=== PATIENT | male | born 1945 | race Caucasian/White ===

== ENCOUNTER 2017-11-11 20:02 | Observation (INO) | payer MEDICARE ==
[~2017-11-11] VITALS: Ht 185.4 cm; Wt 103.0 kg
[~2017-11-11 20:02] MED LIST: ASPI-612 PO; CALC-499 PO; CITA20TA11 PO; CLOP75TA35 PO; COR3.125T PO; FENO135C PO; FOLI-62 PO; GABA-338 PO; GLIP5TAB26 PO; HYDR-3964 PO; ISOS30TA6 PO; LOSA25TA96 PO; NICO-631 TD; OMEG10007 PO; PRAZ1CAP5 PO; SIMV20TA5 PO
[2017-11-11] MEDS ORDERED: aspirin 81mg tab.chew PO ONE ×2 (20:05→20:20)
[2017-11-11] MEDS ORDERED: acetaminophen 325mg tablet PO ONE (20:20)
[2017-11-11 20:40] LABS: BASOPHILS % (AUTO) 0.3 % (0-1); EOSINOPHILS # (AUTO) 0.3 X10'3 (0-0.9); EOSINOPHILS % (AUTO) 3.7 % (0-6); HEMATOCRIT 34.3 % (42.0-52.0); HEMOGLOBIN 11.8 g/dl (14.0-17.9); LYMPHOCYTES # (AUTO) 2.8 X10'3 (1.1-4.8); LYMPHOCYTES % (AUTO) 37.4 % (21-51); MEAN CORPUSCULAR HEMOGLOBIN 29.9 PG (27.0-31.0); MEAN CORPUSCULAR HGB CONC 34.3 % (33.0-36.5); MEAN CORPUSCULAR VOLUME 87.3 FL (78-98); MEAN PLATELET VOLUME 8.4 FL (7.4-10.4); MONOCYTES # (AUTO) 0.7 X10'3 (0-0.9); MONOCYTES % (AUTO) 8.9 % (2-12); NEUTROPHILS # (AUTO) 3.7 X10'3 (1.8-7.7); NEUTROPHILS % (AUTO) 49.7 % (42-75); PLATELET COUNT 255 X10'3 (140-440); RED BLOOD COUNT 3.93 X10'6 (4.70-6.10); RED CELL DISTRIBUTION WIDTH 14.3 % (11.5-14.5); WHITE BLOOD COUNT 7.5 X10'3 (4.5-11.0)
[2017-11-11 21:04] LABS: ALANINE AMINOTRANSFERASE 25 U/L (12-78); ALBUMIN 3.6 G/DL (3.4-5.0); ALKALINE PHOSPHATASE 85 IU/L (46-116); ANION GAP 13 (8-16); BILIRUBIN,TOTAL 0.2 MG/DL (0.1-1.0); BLOOD UREA NITROGEN 19 MG/DL (7-18); BUN/CREATININE RATIO 12.3 (5.4-32.0); CALCIUM 8.5 MG/DL (8.5-10.1); CHLORIDE 106 MMOL/L (99-107); CREATININE 1.55 MG/DL (0.60-1.10); MAGNESIUM 1.9 MG/DL (1.5-2.4); POTASSIUM 3.8 MMOL/L (3.5-5.1); SODIUM 141 MMOL/L (135-145); TOTAL CARBON DIOXIDE 21.7 MMOL/L (24-32); TOTAL PROTEIN 7.3 G/DL (6.4-8.2); eGFR 44 ML/MIN
[2017-11-11 21:18] LABS: GLUCOSE 254 MG/DL (70-104)
[2017-11-11 21:32] LABS: ASPARTATE AMINO TRANSFERASE 23 U/L (10-37)
[2017-11-11] MEDS ORDERED: ATOR20TA PO (21:36)
[2017-11-11] MEDS ORDERED: OMEP40CA37 PO (21:36)
[2017-11-11] MEDS ORDERED: GEMF600T3 PO (21:36)
[2017-11-11] MEDS ORDERED: glucagon, human recombinant 1mg kit SUBCUT PRN (23:30)
[2017-11-11] MEDS ORDERED: ondansetron/PF 4mg/2ml inj IV PRN (23:30)
[2017-11-11] MEDS ORDERED: nitroGLYCERIN 0.4mg SUBLingual tab SL PRN (23:30)
[2017-11-11] MEDS ORDERED: HYDROmorphone inj. 0.5 MG/0.5 ML DISP.SYRIN IV PRN (23:30)
[2017-11-11] MEDS ORDERED: MESSAGE TO PHARMACY PO ONE (23:30)
[2017-11-11] MEDS ORDERED: dextrose 50%-water 50ml dispensing syringe IV PRN ×2 (23:30)
[2017-11-11] MEDS ORDERED: acetaminophen 325mg tablet PO PRN (23:30)
[2017-11-11] MEDS ORDERED: dextrose ORAL solution 15 GM/59 ML bottle PO PRN ×2 (23:30)
[2017-11-11] MEDS ORDERED: insulin Lispro (HumaLOG) vial - multi-dose SQ SCH (23:30)
[2017-11-11 23:53] LABS: HEMOGLOBIN A1C 7.4 % (4.5-6.2)
[2017-11-12 02:00] VITALS: BP 107/67
[2017-11-12 04:20] LABS: BASOPHILS % (AUTO) 0.4 % (0-1); EOSINOPHILS # (AUTO) 0.2 X10'3 (0-0.9); EOSINOPHILS % (AUTO) 3.1 % (0-6); HEMATOCRIT 31.4 % (42.0-52.0); HEMOGLOBIN 10.7 g/dl (14.0-17.9); LYMPHOCYTES # (AUTO) 2.5 X10'3 (1.1-4.8); LYMPHOCYTES % (AUTO) 39.4 % (21-51); MEAN CORPUSCULAR HEMOGLOBIN 29.5 PG (27.0-31.0); MEAN CORPUSCULAR HGB CONC 34.1 % (33.0-36.5); MEAN CORPUSCULAR VOLUME 86.5 FL (78-98); MEAN PLATELET VOLUME 8.5 FL (7.4-10.4); MONOCYTES # (AUTO) 0.7 X10'3 (0-0.9); MONOCYTES % (AUTO) 10.3 % (2-12); NEUTROPHILS % (AUTO) 46.8 % (42-75); PLATELET COUNT 212 X10'3 (140-440); RED BLOOD COUNT 3.64 X10'6 (4.70-6.10); RED CELL DISTRIBUTION WIDTH 14.5 % (11.5-14.5); WHITE BLOOD COUNT 6.3 X10'3 (4.5-11.0)
[2017-11-12 04:35] LABS: ALBUMIN 3.2 G/DL (3.4-5.0); ANION GAP 10 (8-16); BLOOD UREA NITROGEN 19 MG/DL (7-18); BUN/CREATININE RATIO 13.2 (5.4-32.0); CALCIUM 8.6 MG/DL (8.5-10.1); CHLORIDE 111 MMOL/L (99-107); CHOL/HDL RATIO 4.8 (0.00-4.99); CHOLESTEROL 114 MG/DL (0-200); CREATININE 1.44 MG/DL (0.60-1.10); GLUCOSE 176 MG/DL (70-104); HDL CHOLESTEROL 24 MG/DL (35-60); LDL CHOLESTEROL 65 MG/DL (50-100); POTASSIUM 3.8 MMOL/L (3.5-5.1); SODIUM 145 MMOL/L (135-145); TOTAL CARBON DIOXIDE 23.7 MMOL/L (24-32); TRIGLYCERIDES 188 MG/DL (20-135); eGFR 48 ML/MIN
[2017-11-12 06:30] VITALS: BP 102/48
[2017-11-12] MEDS ORDERED: gabapentin 300mg capsule PO SCH (08:00)
[2017-11-12] MEDS ORDERED: carVEDilol 3.125mg tablet PO SCH (08:00)
[2017-11-12] MEDS ORDERED: losartan 25mg tablet PO SCH (08:00)
[2017-11-12] MEDS ORDERED: multivitamins, therapeutics tablet PO SCH (08:00)
[2017-11-12] MEDS ORDERED: prazosin 1mg capsule PO SCH (08:00)
[2017-11-12] MEDS ORDERED: non-formulary drug (Omeprazole (Prilosec) 1 CAP) PO SCH (08:00)
[2017-11-12] MEDS ORDERED: isosorbide mononitrate 30mg tab.SR.24H PO SCH (08:00)
[2017-11-12] MEDS ORDERED: aspirin 81mg tablet.DR PO SCH (08:00)
[2017-11-12] MEDS ORDERED: citalopram 20mg tablet PO SCH (08:00)
[2017-11-12] MEDS ORDERED: clopidogrel 75mg tablet PO SCH (08:00)
[2017-11-12] MEDS ORDERED: OMEGA-3/DHA/EPA/FISH OIL 1 EACH CAPSULE.DR PO SCH (08:00)
[2017-11-12] MEDS ORDERED: calcium carbonate/vitamin D3 tablet PO SCH (08:30)
[2017-11-12] MEDS ORDERED: NITR0.4T48 SL (09:36)
[2017-11-12] MEDS ORDERED: RANO500T3 PO (09:36)
[2017-11-12] MEDS ORDERED: atorvastatin 20mg tablet PO SCH (21:00)
[2017-11-12] MEDS ORDERED: insulin glargine (Lantus) pen - multi-dose SQ SCH (21:00)
== END 2017-11-12 10:35 | disposition home or self-care (01) ==
LOC: ER 20:03 → PCU 3S 23:44
PROVIDERS: ADMIT Family Medicine; ATTEND Family Medicine
DX: R07.89 Other chest pain (principal); E78.00 Pure hypercholesterolemia, unspecified; E78.5 Hyperlipidemia, unspecified; I13.0 Hypertensive heart and chronic kidney disease with heart failure and stage 1 through stage 4 chronic kidney disease, or unspecified chronic kidney disease; E11.22 Type 2 diabetes mellitus with diabetic chronic kidney disease; N18.3 Chronic kidney disease, stage 3 (moderate); I25.110 Atherosclerotic heart disease of native coronary artery with unstable angina pectoris; I25.2 Old myocardial infarction; E11.42 Type 2 diabetes mellitus with diabetic polyneuropathy; K21.9 Gastro-esophageal reflux disease without esophagitis; J40 Bronchitis, not specified as acute or chronic; R56.9 Unspecified convulsions; J18.9 Pneumonia, unspecified organism; Z72.0 Tobacco use; Z86.73 Personal history of transient ischemic attack (TIA), and cerebral infarction without residual deficits; Z95.5 Presence of coronary angioplasty implant and graft
CPT/HCPCS: 36415; 71045; 80048; 80053; 80061; 82948; 83036; 83735; 83880; 84484; 85025; 93005; 99285; G0378; J1815

== ENCOUNTER 2017-12-26 11:41 | Observation (INO) | payer MEDICARE ==
[~2017-12-26] VITALS: Ht 185.4 cm; Wt 96.7 kg
[2017-12-26 00:15] VITALS: BP 119/47
[~2017-12-26 11:41] MED LIST changes: +ATOR20TA PO; +CITA-278 PO; -CITA20TA11 PO; -FENO135C PO; +GEMF600T3 PO; -HYDR-3964 PO; -NICO-631 TD; +NITR0.4T48 SL; +OMEP40CA37 PO; +RANO500T3 PO; -SIMV20TA5 PO
[2017-12-26 12:06] LABS: BASOPHILS % (AUTO) 0.2 % (0-1); EOSINOPHILS % (AUTO) 0.4 % (0-6); HEMATOCRIT 35.4 % (42.0-52.0); LYMPHOCYTES # (AUTO) 1.6 X10'3 (1.1-4.8); LYMPHOCYTES % (AUTO) 13.3 % (21-51); MEAN CORPUSCULAR VOLUME 88.4 FL (78-98); MEAN PLATELET VOLUME 7.8 FL (7.4-10.4); MONOCYTES # (AUTO) 0.9 X10'3 (0-0.9); MONOCYTES % (AUTO) 7.2 % (2-12); NEUTROPHILS # (AUTO) 9.4 X10'3 (1.8-7.7); NEUTROPHILS % (AUTO) 78.9 % (42-75); PLATELET COUNT 239 X10'3 (140-440); RED CELL DISTRIBUTION WIDTH 14.5 % (11.5-14.5); WHITE BLOOD COUNT 11.9 X10'3 (4.5-11.0)
[2017-12-26 12:18] LABS: INR 1.2 INR; PROTHROMBIN TIME 12.7 SECONDS (9.0-12.0)
[2017-12-26 12:23] LABS: ALANINE AMINOTRANSFERASE 18 U/L (12-78); ALBUMIN 3.4 G/DL (3.4-5.0); ALBUMIN/GLOBULIN RATIO 0.8 (1.1-1.5); ALKALINE PHOSPHATASE 87 IU/L (46-116); ANION GAP 8 (8-16); ASPARTATE AMINO TRANSFERASE 16 U/L (10-37); BILIRUBIN,TOTAL 0.5 MG/DL (0.1-1.0); BLOOD UREA NITROGEN 21 MG/DL (7-18); BUN/CREATININE RATIO 12.4 (5.4-32.0); CHLORIDE 105 MMOL/L (99-107); GLUCOSE 155 MG/DL (70-104); POTASSIUM 3.9 MMOL/L (3.5-5.1); SODIUM 138 MMOL/L (135-145); TOTAL PROTEIN 7.5 G/DL (6.4-8.2); eGFR 40 ML/MIN
[2017-12-26] MEDS ORDERED: normal saline 1000ML IV soln IVB ONE (12:30)
[2017-12-26] MEDS ORDERED: metroNIDAZOLE-Flagyl 500mg/NS 100 ML IV STA (13:02)
[2017-12-26] MEDS ORDERED: levoFLOXACIN-Levaquin 500mg/D5 100 ML IV ONE (13:05)
[2017-12-26 14:19] LABS: CLARITY,URINE CLEAR (Clear); COLOR,URINE YELLOW (Yellow); GLUCOSE, URINE NEGATIVE (Neg); KETONES,URINE NEGATIVE (Neg); LEUKOCYTE ESTERASE ,URINE NEGATIVE (Neg); NITRITES, URINE NEGATIVE (Neg); OCCULT BLOOD,URINE TRACE-LYSED (Neg); PH,URINE 5.5 (4.8-8.0); PROTEIN,URINE NEGATIVE (Neg); UA COLLECTION TYPE CLN CATCH MIDSTREAM; UROBILINOGEN,URINE 0.2 E.U/dL (0.2-1.0)
[2017-12-26 14:26] LABS: BACTERIA,URINE FEW /HPF (Neg); RBC,URINE 0-2 /HPF (0-2); SQUAMOUS EPITHELIAL CELL,UR FEW /LPF (FEW); WBC,URINE 0-4 /HPF (0-4)
[2017-12-26] MEDS ORDERED: nitroGLYCERIN 0.4mg SUBLingual tab SL PRN (15:35)
[2017-12-26] MEDS ORDERED: mag hydrox/Alum hydrox/simeth 30ml oral suspension PO PRN (15:45)
[2017-12-26] MEDS ORDERED: dextrose 50%-water 50ml dispensing syringe IV PRN ×2 (15:45)
[2017-12-26] MEDS ORDERED: dextrose ORAL solution 15 GM/59 ML bottle PO PRN ×2 (15:45)
[2017-12-26] MEDS ORDERED: MESSAGE TO PHARMACY PO ONE (15:45)
[2017-12-26] MEDS ORDERED: ondansetron/PF 4mg/2ml inj IV PRN (15:45)
[2017-12-26] MEDS ORDERED: HYDROcodone/acetaminophen 5mg/325mg tablet PO PRN (15:45)
[2017-12-26] MEDS ORDERED: nicotine 14mg patch - 24hr TD ONE (15:45)
[2017-12-26] MEDS ORDERED: insulin Lispro (HumaLOG) vial - multi-dose SQ SCH (15:45)
[2017-12-26] MEDS ORDERED: acetaminophen 325mg tablet PO PRN (15:45)
[2017-12-26] MEDS ORDERED: magnesium hydroxide 30ml (MOM) UD suspension PO PRN (15:45)
[2017-12-26] MEDS ORDERED: morphine 4 MG/ML inj SYRINge IV PRN (15:45)
[2017-12-26] MEDS ORDERED: HYDROcodone/acetaminophen 10/325mg tab PO PRN (15:45)
[2017-12-26] MEDS ORDERED: glucagon, human recombinant 1mg kit SUBCUT PRN (15:45)
[2017-12-26] MEDS: normal saline 1000ml 1,000 ML IV SCH (16:00)
[2017-12-26] MEDS ORDERED: ATOR40TA3 PO (17:13)
[2017-12-26 20:00] VITALS: BP 97/46
[2017-12-26] MEDS: carVEDilol 3.125mg tablet PO SCH (20:00)
[2017-12-26] MEDS: lactobacillus rhamnosus 10,000 MMU CELLS/CAPSULE PO SCH (20:33)
[2017-12-26] MEDS: ranolazine 500mg SR tablet (Q12H) PO SCH (20:33)
[2017-12-26] MEDS: atorvastatin 20mg tablet PO SCH (20:34)
[2017-12-26] MEDS: gabapentin 300mg capsule PO SCH (20:34)
[2017-12-26] MEDS: heparin, porcine 5000 units/ml vial SQ SCH (20:34)
[2017-12-26] MEDS: morphine 4 MG/ML inj SYRINge IV PRN (20:45)
[2017-12-26] MEDS: insulin glargine (Lantus) pen - multi-dose SQ SCH (21:00)
[2017-12-27] MEDS: metroNIDAZOLE-Flagyl 500mg/NS 100 ML IV SCH ×3 (00:13→19:38)
[2017-12-27 05:29] LABS: BASOPHILS % (AUTO) 0.3 % (0-1); EOSINOPHILS # (AUTO) 0.2 X10'3 (0-0.9); EOSINOPHILS % (AUTO) 2.3 % (0-6); HEMATOCRIT 32.5 % (42.0-52.0); LYMPHOCYTES # (AUTO) 1.5 X10'3 (1.1-4.8); LYMPHOCYTES % (AUTO) 18.3 % (21-51); MEAN CORPUSCULAR HEMOGLOBIN 29.8 PG (27.0-31.0); MEAN CORPUSCULAR HGB CONC 33.9 % (33.0-36.5); MEAN CORPUSCULAR VOLUME 87.7 FL (78-98); MEAN PLATELET VOLUME 8.2 FL (7.4-10.4); MONOCYTES # (AUTO) 0.7 X10'3 (0-0.9); MONOCYTES % (AUTO) 8.4 % (2-12); NEUTROPHILS # (AUTO) 5.7 X10'3 (1.8-7.7); NEUTROPHILS % (AUTO) 70.7 % (42-75); PLATELET COUNT 200 X10'3 (140-440); RED CELL DISTRIBUTION WIDTH 14.7 % (11.5-14.5); WHITE BLOOD COUNT 8.1 X10'3 (4.5-11.0)
[2017-12-27] MEDS: normal saline 1000ml 1,000 ML IV SCH ×3 (05:40→21:42)
[2017-12-27 05:49] LABS: ALANINE AMINOTRANSFERASE 14 U/L (12-78); ALBUMIN 2.8 G/DL (3.4-5.0); ALBUMIN/GLOBULIN RATIO 0.7 (1.1-1.5); ALKALINE PHOSPHATASE 71 IU/L (46-116); ANION GAP 12 (8-16); ASPARTATE AMINO TRANSFERASE 17 U/L (10-37); BILIRUBIN,TOTAL 0.4 MG/DL (0.1-1.0); BLOOD UREA NITROGEN 18 MG/DL (7-18); CALCIUM 8.5 MG/DL (8.5-10.1); CHLORIDE 110 MMOL/L (99-107); CREATININE 1.38 MG/DL (0.60-1.10); GLUCOSE 125 MG/DL (70-104); POTASSIUM 3.6 MMOL/L (3.5-5.1); SODIUM 143 MMOL/L (135-145); TOTAL CARBON DIOXIDE 20.8 MMOL/L (24-32); TOTAL PROTEIN 6.6 G/DL (6.4-8.2); eGFR 51 ML/MIN
[2017-12-27 06:55] VITALS: BP 115/93
[2017-12-27] MEDS: levoFLOXACIN-Levaquin 500mg/D5 100 ML IV SCH (07:35)
[2017-12-27] MEDS: citalopram 20mg tablet PO SCH (07:40)
[2017-12-27] MEDS: aspirin 81mg tablet.DR PO SCH (07:40)
[2017-12-27] MEDS: clopidogrel 75mg tablet PO SCH (07:41)
[2017-12-27] MEDS: ranolazine 500mg SR tablet (Q12H) PO SCH ×2 (07:41→19:38)
[2017-12-27] MEDS: lactobacillus rhamnosus 10,000 MMU CELLS/CAPSULE PO SCH ×2 (07:41→19:38)
[2017-12-27] MEDS: gabapentin 300mg capsule PO SCH ×3 (07:42→20:32)
[2017-12-27] MEDS: multivitamins, therapeutics tablet PO SCH (07:43)
[2017-12-27] MEDS: pantoprazole 40mg Tablet.DR PO SCH (07:43)
[2017-12-27] MEDS: OMEGA-3/DHA/EPA/FISH OIL 1 EACH CAPSULE.DR PO SCH (07:44)
[2017-12-27] MEDS: prazosin 1mg capsule PO SCH (07:44)
[2017-12-27] MEDS: losartan 25mg tablet PO SCH (07:45)
[2017-12-27] MEDS: isosorbide mononitrate 30mg tab.SR.24H PO SCH (07:45)
[2017-12-27] MEDS: calcium carbonate/vitamin D3 tablet PO SCH (07:46)
[2017-12-27] MEDS: heparin, porcine 5000 units/ml vial SQ SCH ×2 (07:47→19:39)
[2017-12-27] MEDS: carVEDilol 3.125mg tablet PO SCH ×2 (07:52→19:38)
[2017-12-27 13:07] VITALS: BP 107/49
[2017-12-27 20:00] VITALS: BP 124/62
[2017-12-27] MEDS: atorvastatin 20mg tablet PO SCH (20:32)
[2017-12-27] MEDS: insulin glargine (Lantus) pen - multi-dose SQ SCH (20:36)
[2017-12-27 23:30] VITALS: BP 114/55
[2017-12-28] MEDS: metroNIDAZOLE-Flagyl 500mg/NS 100 ML IV SCH ×2 (01:23→07:45)
[2017-12-28] MEDS: normal saline 1000ml 1,000 ML IV SCH (04:09)
[2017-12-28] MEDS: morphine 4 MG/ML inj SYRINge IV PRN (04:15)
[2017-12-28 05:57] LABS: BASOPHILS % (AUTO) 0.6 % (0-1); EOSINOPHILS # (AUTO) 0.3 X10'3 (0-0.9); HEMATOCRIT 33.4 % (42.0-52.0); HEMOGLOBIN 11.4 g/dl (14.0-17.9); LYMPHOCYTES # (AUTO) 1.7 X10'3 (1.1-4.8); LYMPHOCYTES % (AUTO) 32.8 % (21-51); MEAN CORPUSCULAR VOLUME 88.2 FL (78-98); MEAN PLATELET VOLUME 8.3 FL (7.4-10.4); MONOCYTES # (AUTO) 0.5 X10'3 (0-0.9); MONOCYTES % (AUTO) 9.3 % (2-12); NEUTROPHILS # (AUTO) 2.8 X10'3 (1.8-7.7); NEUTROPHILS % (AUTO) 52.3 % (42-75); PLATELET COUNT 218 X10'3 (140-440); RED BLOOD COUNT 3.79 X10'6 (4.70-6.10); RED CELL DISTRIBUTION WIDTH 14.4 % (11.5-14.5); WHITE BLOOD COUNT 5.3 X10'3 (4.5-11.0)
[2017-12-28 06:12] LABS: ALANINE AMINOTRANSFERASE 17 U/L (12-78); ALBUMIN 2.8 G/DL (3.4-5.0); ALBUMIN/GLOBULIN RATIO 0.7 (1.1-1.5); ALKALINE PHOSPHATASE 62 IU/L (46-116); ANION GAP 9 (8-16); ASPARTATE AMINO TRANSFERASE 16 U/L (10-37); BILIRUBIN,TOTAL 0.3 MG/DL (0.1-1.0); BLOOD UREA NITROGEN 19 MG/DL (7-18); BUN/CREATININE RATIO 12.5 (5.4-32.0); CALCIUM 9.1 MG/DL (8.5-10.1); CHLORIDE 114 MMOL/L (99-107); CREATININE 1.52 MG/DL (0.60-1.10); GLUCOSE 142 MG/DL (70-104); POTASSIUM 4.3 MMOL/L (3.5-5.1); SODIUM 148 MMOL/L (135-145); TOTAL CARBON DIOXIDE 25.2 MMOL/L (24-32); TOTAL PROTEIN 6.7 G/DL (6.4-8.2); eGFR 45 ML/MIN
[2017-12-28 07:07] VITALS: BP 114/62
[2017-12-28] MEDS: clopidogrel 75mg tablet PO SCH (07:45)
[2017-12-28] MEDS: OMEGA-3/DHA/EPA/FISH OIL 1 EACH CAPSULE.DR PO SCH (07:45)
[2017-12-28] MEDS: ranolazine 500mg SR tablet (Q12H) PO SCH (07:45)
[2017-12-28] MEDS: gabapentin 300mg capsule PO SCH (07:45)
[2017-12-28] MEDS: aspirin 81mg tablet.DR PO SCH (07:45)
[2017-12-28] MEDS: prazosin 1mg capsule PO SCH (07:45)
[2017-12-28] MEDS: pantoprazole 40mg Tablet.DR PO SCH (07:45)
[2017-12-28] MEDS: citalopram 20mg tablet PO SCH (07:46)
[2017-12-28] MEDS: calcium carbonate/vitamin D3 tablet PO SCH (07:46)
[2017-12-28] MEDS: losartan 25mg tablet PO SCH (07:46)
[2017-12-28] MEDS: lactobacillus rhamnosus 10,000 MMU CELLS/CAPSULE PO SCH (07:46)
[2017-12-28] MEDS: multivitamins, therapeutics tablet PO SCH (07:46)
[2017-12-28] MEDS: carVEDilol 3.125mg tablet PO SCH (07:46)
[2017-12-28] MEDS: isosorbide mononitrate 30mg tab.SR.24H PO SCH (07:47)
[2017-12-28] MEDS: heparin, porcine 5000 units/ml vial SQ SCH (07:48)
[2017-12-28] MEDS ORDERED: METR500T PO (08:41)
[2017-12-28] MEDS: levoFLOXACIN-Levaquin 500mg/D5 100 ML IV SCH (09:29)
[2017-12-28 11:39] VITALS: BP 116/67
== END 2017-12-28 12:52 | disposition home or self-care (01) ==
LOC: ER 11:41 → ED HOLD 15:42 → CMPBEDREQ 19:37 → SUR 3N 19:45
PROVIDERS: ADMIT Family Medicine; ATTEND Family Medicine
DX: K57.92 Diverticulitis of intestine, part unspecified, without perforation or abscess without bleeding (principal); N17.9 Acute kidney failure, unspecified; N20.0 Calculus of kidney; I12.9 Hypertensive chronic kidney disease with stage 1 through stage 4 chronic kidney disease, or unspecified chronic kidney disease; E11.22 Type 2 diabetes mellitus with diabetic chronic kidney disease; N18.9 Chronic kidney disease, unspecified; E11.42 Type 2 diabetes mellitus with diabetic polyneuropathy; E78.00 Pure hypercholesterolemia, unspecified; E78.5 Hyperlipidemia, unspecified; I25.10 Atherosclerotic heart disease of native coronary artery without angina pectoris; F17.210 Nicotine dependence, cigarettes, uncomplicated; K21.9 Gastro-esophageal reflux disease without esophagitis; R56.9 Unspecified convulsions; I25.2 Old myocardial infarction; J18.9 Pneumonia, unspecified organism; J40 Bronchitis, not specified as acute or chronic; G89.29 Other chronic pain; Z80.0 Family history of malignant neoplasm of digestive organs; Z82.49 Family history of ischemic heart disease and other diseases of the circulatory system; Z83.3 Family history of diabetes mellitus; Z95.5 Presence of coronary angioplasty implant and graft
CPT/HCPCS: 36415; 71250; 74176; 80053; 81001; 82948; 84145; 85025; 85610; 96361; 96365; 96366; 96367; 96372; 96375; 96376; 99285; G0378; J1644; J1956; J2270; J3490; J7030; J1815

== ENCOUNTER 2018-09-29 14:29 | Emergency (ER) | payer MEDICARE, OTHER ==
[~2018-09-29] VITALS: Ht 185.4 cm; Wt 99.8 kg
[~2018-09-29 14:29] MED LIST changes: -CITA-278 PO; +CITA20TA28 PO; -GEMF600T3 PO; +GEMF600T89 PO
--- NOTE | 2018-09-29 15:19 | NUR ---
To xray via WC from CT study.
[2018-09-29] MEDS ORDERED: ketorolac trometh inj. 60 MG/2 ML VIAL IM ONE (16:00)
[2018-09-29 16:09] VITALS: BP 127/71
[2018-09-29] MEDS ORDERED: CYCL-1 PO (16:55)
== END 2018-09-29 17:08 | disposition home or self-care (01) ==
LOC: ER 14:30
DX: S09.90XA Unspecified injury of head, initial encounter (principal); M25.512 Pain in left shoulder; M25.551 Pain in right hip; M54.2 Cervicalgia; E78.00 Pure hypercholesterolemia, unspecified; I25.10 Atherosclerotic heart disease of native coronary artery without angina pectoris; I25.2 Old myocardial infarction; K21.9 Gastro-esophageal reflux disease without esophagitis; G89.29 Other chronic pain; E11.40 Type 2 diabetes mellitus with diabetic neuropathy, unspecified; I11.0 Hypertensive heart disease with heart failure; I50.9 Heart failure, unspecified; Z88.0 Allergy status to penicillin; Z88.6 Allergy status to analgesic agent; Z79.82 Long term (current) use of aspirin; Z79.899 Other long term (current) drug therapy; V98.8XXA Other specified transport accidents, initial encounter; Y93.89 Activity, other specified; Y92.89 Other specified places as the place of occurrence of the external cause; Y99.8 Other external cause status
CPT/HCPCS: 70450; 73030; 73502; 96372; 99284; J1885

== ENCOUNTER 2019-02-23 15:12 | Emergency (ER) | payer MEDICARE, OTHER ==
[~2019-02-23] VITALS: Ht 185.4 cm; Wt 104.5 kg
[~2019-02-23 15:12] MED LIST changes: +CYCL-1 PO; +OMEP40CA13 PO; -OMEP40CA37 PO
[2019-02-23] MEDS ORDERED: silver sulfadiazine cream 50gm TP ONE (15:50)
[2019-02-23 16:11] LABS: BASOPHILS # (AUTO) 0.1 X10'3 (0-0.2); BASOPHILS % (AUTO) 0.8 % (0-1); EOSINOPHILS # (AUTO) 0.2 X10'3 (0-0.9); EOSINOPHILS % (AUTO) 2.4 % (0-6); HEMATOCRIT 38.2 % (42.0-52.0); LYMPHOCYTES # (AUTO) 2.1 X10'3 (1.1-4.8); LYMPHOCYTES % (AUTO) 30.2 % (21-51); MEAN CORPUSCULAR HEMOGLOBIN 29.9 PG (27.0-31.0); MEAN PLATELET VOLUME 7.9 FL (7.4-10.4); MONOCYTES # (AUTO) 0.6 X10'3 (0-0.9); MONOCYTES % (AUTO) 8.4 % (2-12); NEUTROPHILS % (AUTO) 58.2 % (42-75); PLATELET COUNT 311 X10'3 (140-440); RED BLOOD COUNT 4.34 X10'6 (4.70-6.10); RED CELL DISTRIBUTION WIDTH 13.1 % (11.5-14.5); WHITE BLOOD COUNT 6.8 X10'3 (4.5-11.0)
[2019-02-23 16:20] LABS: ALANINE AMINOTRANSFERASE 28 U/L (12-78); ALBUMIN 3.9 G/DL (3.4-5.0); ALBUMIN/GLOBULIN RATIO 0.9 (1.1-1.5); ALKALINE PHOSPHATASE 79 IU/L (46-116); ANION GAP 12 (8-16); ASPARTATE AMINO TRANSFERASE 17 U/L (10-37); BILIRUBIN,TOTAL 0.4 MG/DL (0.1-1.0); BLOOD UREA NITROGEN 29 MG/DL (7-18); BUN/CREATININE RATIO 16.2 (5.4-32.0); CALCIUM 9.3 MG/DL (8.5-10.1); CHLORIDE 106 MMOL/L (99-107); CREATININE 1.79 MG/DL (0.60-1.10); GLUCOSE 183 MG/DL (70-104); POTASSIUM 3.9 MMOL/L (3.5-5.1); SODIUM 140 MMOL/L (135-145); TOTAL CARBON DIOXIDE 22.3 MMOL/L (24-32); TOTAL PROTEIN 8.2 G/DL (6.4-8.2); eGFR 38 ML/MIN
[2019-02-23] MEDS ORDERED: BACI28OI9 TP (16:45)
[2019-02-23] MEDS ORDERED: CEPH250T PO (16:50)
[2019-02-23 17:12] VITALS: BP 133/62
== END 2019-02-23 17:26 | disposition home or self-care (01) ==
LOC: ER 15:13
DX: T25.221A Burn of second degree of right foot, initial encounter (principal); I11.0 Hypertensive heart disease with heart failure; I50.9 Heart failure, unspecified; I25.10 Atherosclerotic heart disease of native coronary artery without angina pectoris; E78.00 Pure hypercholesterolemia, unspecified; I25.2 Old myocardial infarction; K21.9 Gastro-esophageal reflux disease without esophagitis; E11.9 Type 2 diabetes mellitus without complications; G89.29 Other chronic pain; Z98.61 Coronary angioplasty status; Z98.890 Other specified postprocedural states; Z88.0 Allergy status to penicillin; Z88.5 Allergy status to narcotic agent; Z88.6 Allergy status to analgesic agent; Z79.82 Long term (current) use of aspirin; Z79.2 Long term (current) use of antibiotics; Z79.899 Other long term (current) drug therapy; X19.XXXA Contact with other heat and hot substances, initial encounter; Y93.01 Activity, walking, marching and hiking; Y92.096 Garden or yard of other non-institutional residence as the place of occurrence of the external cause; Y99.8 Other external cause status
CPT/HCPCS: 16020; 36415; 80053; 85025; 99284